=== PATIENT | female | born 1970 | race Hispanic/Latino ===

== ENCOUNTER 2022-03-29 17:58 | Emergency (ER) | payer OTHER ==
[~2022-03-29] VITALS: Ht 177.8 cm; Wt 79.4 kg
[2022-03-29 18:03] VITALS: BP 125/93
[2022-03-29] MEDS ORDERED: PHENAZOPYRIDINE HCL 200 MG TABLET PO ONE (18:30)
[2022-03-29] MEDS ORDERED: CEFTRIAXONE 1G VIAL IM ONE (18:30)
[2022-03-29 18:41] LABS: APPEARANCE,URINE CLEAR (CLEAR); BILIRUBIN,URINE NEGATIVE (NEGATIVE); COLOR,URINE YELLOW (YELLOW); GLUCOSE, URINE (UA) NEGATIVE (NEGATIVE); KETONES,URINE NEGATIVE (NEGATIVE); LEUKOCYTE ESTERASE ,URINE MODERATE (NEGATIVE); NITRATE,URINE POSITIVE (NEGATIVE); OCCULT BLOOD,URINE LARGE (NEGATIVE); PH,URINE 6.5 (5.0-8.0); PROTEIN,URINE NEGATIVE (NEGATIVE); UROBILINOGEN,URINE 0.2 mg/dL (0.2-1.0)
[2022-03-29 18:46] LABS: HCG,QUAL RESULT NEGATIVE (NEGATIVE)
[2022-03-29 18:54] LABS: BACTERIA,URINE Few /HPF (None Seen); MUCUS,URINE Few LPF (None Seen); SQUAMOUS EPITHELIAL CELL,UR Few /HPF (0-2)
[2022-03-29] MEDS ORDERED: CEPH500B PO (19:21)
[2022-03-29] MEDS ORDERED: PHEN-847 PO (19:21)
== END 2022-03-29 19:44 | disposition home or self-care (01) ==
LOC: EDH 17:58
DX: N39.0 Urinary tract infection, site not specified (principal); Z98.890 Other specified postprocedural states
CPT/HCPCS: 81001; 81025; 87088; 96372; 99283; J0696; 87077; 87186